=== PATIENT | female | born 1965 | race Caucasian/White ===

== ENCOUNTER 2020-04-10 10:30 | Outpatient (RCR) | payer SELFPAY | END 2020-05-08 | disposition home or self-care (01) | LOC: PT | DX: Z98.890 Other specified postprocedural states (principal) ==

== ENCOUNTER 2020-10-24 14:00 | Outpatient (RCR) | payer BC | END 2021-01-22 | disposition still patient (30) | LOC: PT | DX: M17.12 Unilateral primary osteoarthritis, left knee (principal) ==

== ENCOUNTER → 2021-01-29 | Outpatient (CLI) | payer BC | LOC: LAB 09:44 | DX: Z20.822 Contact with and (suspected) exposure to COVID-19 (principal) ==